=== PATIENT | male | born 1970 | race Caucasian/White ===

== ENCOUNTER 2019-04-07 08:31 | Emergency (ER) | payer BC, OTHER ==
[~2019-04-07] VITALS: Ht 180.3 cm; Wt 98.9 kg
[~2019-04-07 08:31] MED LIST: ENDOCET 5-3251 EACH OR
[2019-04-07 11:48] LABS: ABSOLUTE NEUTROPHILS 5.1 thou/uL (1.4-8.2); BASOPHILS 1.2 % (0.0-2.0); EOSINOPHILS 4.2 % (0.0-3.0); HEMATOCRIT 45.2 % (42.0-52.0); HEMOGLOBIN 15.3 gm/dL (14.0-18.0); LYMPHOCYTES 28.6 % (24.0-44.0); MCH 29.7 pg (26.0-34.0); MCHC 33.7 g/dL (28.0-37.0); MCV 87.9 fL (80.0-100.0); MONOCYTES 5.1 % (1.0-8.0); PLATELET COUNT 293 thou/uL (150-400); POLYS 60.9 % (36.0-66.0); RBC 5.15 mil/uL (4.50-6.00); WBC 8.3 thou/uL (4.0-11.0)
[2019-04-07 12:18] LABS: CALCIUM 9.6 mg/dL (8.5-10.1); CREATININE 0.9 mg/dL (0.7-1.3)
[2019-04-07] MEDS ORDERED: MEDROLDOSEPACK PO (12:31)
[2019-04-07] MEDS ORDERED: MOBIC7.5 MG PO (12:31)
[2019-04-07 12:46] LABS: POTASSIUM 4.5 mmol/L (3.5-5.1)
[2019-04-07 13:26] VITALS: BP 132/68
== END 2019-04-07 13:28 | disposition home or self-care (01) ==
LOC: ER 08:31
PROVIDERS: Emergency Medicine
DX: M54.31 Sciatica, right side (principal); I25.2 Old myocardial infarction; E11.9 Type 2 diabetes mellitus without complications; F17.210 Nicotine dependence, cigarettes, uncomplicated; Z90.49 Acquired absence of other specified parts of digestive tract; Z98.890 Other specified postprocedural states; Z87.442 Personal history of urinary calculi; Z88.2 Allergy status to sulfonamides